=== PATIENT | male | born 1980 | race Two or more races ===

== ENCOUNTER 2023-01-01 13:40 | Outpatient (AMB) | payer OTHER, SELFPAY ==
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
[2023-01-01 13:52] VITALS: BP 110/72; PULSE 76; O2SAT 98; BMI 19.2
== END 2023-01-01 15:10 | disposition home or self-care (01) ==
PROVIDERS: PCP Internal Medicine; Visit Provider Nurse Practitioner Family
DX: G47.9 Sleep disorder, unspecified (principal); S06.9XAA Unspecified intracranial injury with loss of consciousness status unknown, initial encounter; G43.009 Migraine without aura, not intractable, without status migrainosus; M79.89 Other specified soft tissue disorders
CPT/HCPCS: 99204

== ENCOUNTER → 2023-01-01 13:40 | Outpatient (BNVA) | payer OTHER, SELFPAY | PROVIDERS: PCP Internal Medicine; Visit Provider Nurse Practitioner Family | DX: G47.9 Sleep disorder, unspecified (principal); G43.009 Migraine without aura, not intractable, without status migrainosus; R22.0 Localized swelling, mass and lump, head; Z87.820 Personal history of traumatic brain injury | CPT/HCPCS: 99202 ==